=== PATIENT | female | born 1955 | race African-American/Black ===

== ENCOUNTER 2021-03-11 06:24 | Day surgery (SDC) | payer OTHER ==
--- NOTE | 2021-03-07 11:55 | RAD REPORT ---
EXAM DESCRIPTION: RAD - Chest Pa And Lat (2 Views) - 03/07/2021 11:37 am CLINICAL HISTORY: pre-op COMPARISON: Lung Cancer Screening CT W/O dated 07/09/2020 FINDINGS: Lines: None. Lungs: No evidence of edema or pneumonia. Scarring in the right mid lung. Pleural: No significant pleural effusions or pneumothorax. Cardiac: The heart size is within normal limits. Bones: No acute fractures. Other: IMPRESSION: No acute cardiopulmonary disease. Emphysema.
[2021-03-07 11:56] LABS: Absolute Lymphocytes (CBC) 1.9 K/uL (0.7-4.9); Basophils % 0.9 % (0-1.3); Hematocrit 39.5 % (36.0-45.0); Lymphocytes % 27.1 % (15.3-44.8); RBC Red Blood Cell Count 4.03 M/uL (3.86-4.86)
[2021-03-07 11:58] LABS: Protime INR 1.03
[2021-03-07 12:04] LABS: BUN Blood Urea Nitrogen 13 mg/dL (7-18); Bicarbonate 31 mmol/L (21-32); Glucose Level 87 mg/dL (74-106); Potassium 4.2 mmol/L (3.5-5.1); Sodium Level 141 mmol/L (136-145)
--- NOTE | 2021-03-08 16:46 | EKG ---
Test Date: 2021-03-07 Test Time: 10:12:22 Cook'S Assistant: REBECCA MEASUREMENT RESULTS: Intervals: Rate: 59 [place]: 190 QRSD: 70 QT: 408 QTc: 403 [place]: P: 74 [place]: 190 QRS: 74 T: 80 INTERPRETIVE STATEMENTS: Sinus bradycardia Otherwise normal ECG Compared to ECG 09/21/2006 09:49:55 Sinus rhythm no longer present Sinus arrhythmia no longer present Electronically Signed On 03-08-21 16:41:27 CDT by Nnamdi Koehler
[2021-03-11] MEDS: Ringers Lactate 1,000 ML IV ONE (06:45)
[2021-03-11] MEDS ORDERED: CEFAZOLIN/SWI 2gm 2 GM/20 ML SYR ONE (07:04)
[2021-03-11] MEDS ORDERED: MIDAZOLAM HCL 2 MG/2 ML INJ ONE (07:37)
[2021-03-11] MEDS ORDERED: KETOROLAC 30 MG/ML INJ ONE (07:37)
[2021-03-11] MEDS ORDERED: LIDOCAINE 1% MPF 5 ML VIAL ONE (07:37)
[2021-03-11] MEDS ORDERED: propofoL 200 MG/20 ML VIAL IV ONE (07:37)
[2021-03-11] MEDS ORDERED: FENTANYL CITR 100 MCG/2 ML ONE (07:37)
[2021-03-11] MEDS ORDERED: ONDANSETRON 4 MG/2 ML VIAL ONE (07:38)
[2021-03-11] MEDS ORDERED: BUPIVACAINE 0.25% PF 10 ML VIAL ONE (07:48)
--- NOTE | 2021-03-11 08:28 | P.BOP ---
Preoperative diagnosis: left carpal tunnel syndrome Postoperative diagnosis: same Primary procedure: left open carpal tunnel release Patient Transportation Driver: NONE,NONE Estimated blood loss: 2 cc Specimen: none Findings: see dictation Anesthesia: General Complications: None Implants: none Fluids & blood products: per anesthesia record; TT: 15 mins @ 250 mmHg Transferred to: Recovery Room Condition: Good
[2021-03-11] MEDS ORDERED: CODEINE 30MG/APAP 300MG TAB ONE (09:39)
[2021-03-11 11:47] VITALS: BP 142/73; TEMP 97; O2SAT 96
--- NOTE | 2021-03-12 05:20 | OP ---
Date of Procedure: 03/11/2021 Surgeon: Harinder Hill MD Preoperative Diagnosis: Left carpal tunnel syndrome. Postoperative Diagnosis: Left carpal tunnel syndrome. Procedure Performed: Left open carpal tunnel release. Anesthesia: General LMA. Fluids: Per Anesthesia record. Estimated Blood Loss: 2 cc. Complications: None. Implants: None. Tourniquet Time: 15 minutes at 250 mmHg. Indication For Procedure: Kayleigh is a 65-year-old female who presented to my clinic with signs and symptoms, and EMG findings consistent with a left carpal tunnel syndrome. Patient failed conservativ e treatment measures and had significant symptoms that interfere with her activities of daily living. I discussed with the patient at length risks and benefits associated with operative and nonoperativ e treatment. She expressed understanding and elected to proceed with operative treatment. Description Of Procedure: After informed consent was obtained, the patient was identified in the pre operative holding area. The left upper extremity was marked. The patient was then brought back to [facility] operating room, transferred to the operating table in supine fashion, placed under general LMA ane sthesia. The left upper extremity was then prepped and draped in usual sterile fashion. A time-out was initiated. The correct patient and procedure were confirmed and identified. The patient did rec eive preoperative prophylactic antibiotics. The left upper extremity was then exsanguinated using an Esmarch. The tourniquet was inflated to 250 mmHg. Approximately, a 3 cm longitudinal incision was made just ulnar to the thenar crease. Dissection was then taken out of the palmar fascia, which was split. A [place] elevator was placed just deep to the palmar fascia to protect the median nerve at all times. The palmar fascia and transverse carpal ligament were then released and using a 15 blade in a distal proximal fashion, protecting the median nerve at all times with the [place] elevator. Any rem aining fascial bands were then released using a blunt-tip Metzenbaum of the tips pointed superficiall y. The wound was then irrigated thoroughly with normal saline. The skin was approximated using a 5- 0 Prolene. Sterile dressings were placed. Tourniquet was let down. Patient was awakened and transf erred to PACU in stable condition. Postoperative Plan: The patient will be nonweightbearing of her left upper extremity. She may begin work on range of motion exercises. She will follow up in 1 week for suture removal. GENARO/MODL Voice ID: [id number] Report ID: [id number]
== END 2021-03-11 09:55 | disposition home or self-care (01) ==
LOC: OR 06:24
PROVIDERS: ATTEND Orthopaedic Surgery Sports Medicine
PROC: 01N50ZZ Release Median Nerve, Open Approach (ICD-10-PCS; principal; 2021-03-11 07:30)
DX: G56.02 Carpal tunnel syndrome, left upper limb (principal); M79.642 Pain in left hand; Z20.822 Contact with and (suspected) exposure to COVID-19
CPT/HCPCS: 36415; 71046; 80048; 85025; 85610; 85730; 93005; J0690; J2250; J2405; J2704; J3010; J7120; U0002

== ENCOUNTER → 2024-09-22 | Day surgery (SDC) | payer OTHER ==
--- NOTE | 2024-09-22 11:27 | RAD REPORT ---
EXAMINATION: ULTRASOUND GUIDED VACUUM-ASSISTED LEFT BREAST CORE NEEDLE BIOPSY LEFT breast core needle biopsy; percutaneous, using ultrasound guidance. Image guided placement, metallic localization clip, percutaneous. Post Bx mammogram: LEFT Dx Mammogram. CLINICAL INDICATION:. R92.8 INFORMED CONSENT: The risks, benefits, alternatives, and potential complications of ultrasound guided vacuum-assisted LEFT breast biopsy were discussed with the patient. An informed consent sheet was signed. The risks include but are not limited to the following: bleeding, infection, vascular injury, organ injury, pneumothorax, allergic reaction, and the need for emergent surgery/procedures. BIOPSY TARGET: Suspicious 7 x 3 mm mm irregular hypoechoic mass periareolar upper inner quadrant, Lat eral approach. NEEDLE: 12 gauge Celero vacuum-assisted core biopsy needle, 3 cores. SEDATION: None. COMPLICATIONS: None. TECHNIQUE: Appropriate audible time out was performed. The skin was prepped and draped in the normal fashion. The soft tissues were anesthetized with lidocaine. Utilizing real-time ultrasound guidance, a vacuum-assisted core biopsy needle was placed into the breast location described above wi th removal of tissue for pathology evaluation. Metallic clip was placed within the biopsied lesion under ultrasound guidance. Compression was held. Hemostasis was achieved. Sterile dressing was applie d. Patient tolerated the procedure well without immediate complication. The technologist was in the room with the radiologist throughout the procedure. IMPRESSION: 1.Successful ultrasound guided vacuum-assisted core biopsy of the LEFT breast as described above. 2. Biopsy clip placed within the biopsied lesion.
--- NOTE | 2024-09-22 12:00 | RAD REPORT ---
EXAM DESCRIPTION: S/P CLIP PLACEMENT UNI COMPARISON: Procedural images of ultrasound-guided core biopsy of the same day. TECHNIQUE: Full field CC and MLO views of the left breast were obtained utilizing digital breast 3D t omosynthesis technique. Computer-aided detection was utilized. FINDINGS: Postbiopsy changes are present, with postbiopsy clip in satisfactory location approximately 24 mm anterior to the target lesion. No hematoma. IMPRESSION: Postprocedural mammogram for clip localization as above. The clip appears positioned 24 m m anterior to the targeted lesion. This is likely related to prominent bleeding along the track noted during the placement. Density: B: There are scattered areas of fibroglandular density. *A negative x-ray report should not delay biopsy if a dominant or clinically suspicious mass is prese nt. 4.8% of cancers are not identified by x-ray. *A negative report may reinforce clinical impression. *Adenosis and dense breasts may obscure an underlying neoplasm. *False positive reports average 6-10%.
== END ==
LOC: DS 08:56
PROVIDERS: ATTEND Family Medicine
DX: R92.8 Other abnormal and inconclusive findings on diagnostic imaging of breast (principal); C50.912 Malignant neoplasm of unspecified site of left female breast; D05.12 Intraductal carcinoma in situ of left breast; Z17.0 Estrogen receptor positive status [ER+]; Z17.32 Human epidermal growth factor receptor 2 negative status; Z17.21 Progesterone receptor positive status
CPT/HCPCS: 19083; 77065; 88305